=== PATIENT | male | born 1975 | race Caucasian/White ===

== ENCOUNTER 2021-05-26 19:51 | Emergency (ER) | payer SELFPAY ==
[2021-05-26 20:27] VITALS: BP 145/95
[2021-05-26] MEDS ORDERED: ZYRTEC ALLERGY10 MG PO (20:33)
[2021-05-26] MEDS ORDERED: DAILY VALUE1 EACH PO (20:33)
== END 2021-05-26 21:04 | disposition left against medical advice (07) ==
LOC: ED 19:51
DX: F11.23 Opioid dependence with withdrawal (principal); F17.210 Nicotine dependence, cigarettes, uncomplicated

== ENCOUNTER → 2022-03-23 | Outpatient (CLI) | payer SELFPAY ==
[~2022-03-23] MED LIST: DAILY VALUE1 EACH PO; ZYRTEC ALLERGY10 MG PO
[2022-03-23 15:23] LABS: HEMATOCRIT 18.9 % (42.0-52.0)
[2022-03-23 16:13] LABS: HEMOGLOBIN 5.6 g/dL (13.5-18.0)
== END ==
LOC: LAB 03-22 11:25 → AMSURD 03-22 22:35 → LAB 15:01
PROVIDERS: Family Medicine
DX: D64.9 Anemia, unspecified (principal)